=== PATIENT | female | born 1970 | race Caucasian/White ===

== ENCOUNTER 2018-12-23 23:13 | Emergency (ER) | payer OTHER ==
[~2018-12-23] VITALS: Ht 160 cm; Wt 62.6 kg
[2018-12-23 23:15] VITALS: BP 190/100
--- NOTE | 2018-12-23 23:15 | NUR ---
48/F BIB FAMILY, C/O SUDDEN ONSET 9/10 CHEST PAIN, RADIATING TO L ARM WITH TINGLING/NUMBNESS, X15 MINS WHILE LAYING DOWN TRYING TO SLEEP. PT REPORTS HEADACHE. PT DENIES N/V. PT AOX4, AMBULATORY, GCS 15, SKIN NORMAL WARM AND DRY, SPO2 100%, RR 26 EVEN AND MILDLY LABORED. LUNG SOUNDS CLEAR BL. HR EVEN AND REGULAR, NSR ON MONITOR. HX BRAIN TUMOR (2017; DENIES CHEMO/RADIATION), HTN, DM, HIGH CHOLESTEROL RX NOTED IN MED REC; PT REPORTS TAKING 40MG LISINOPRIL PO, MEMANTINE, BUTALBITAL/APAP/CAFFEINE AND 0.4 MG NITROGLYCERIN SPRAY 15 MINS AGO WITHOUT RELIEF.
--- NOTE | 2018-12-23 23:15 | NUR ---
TO BED # 04 AMBULATORY
[2018-12-23] MEDS ORDERED: ASPIRIN 325 MG TAB PO ONE (23:25)
[2018-12-23] MEDS ORDERED: NITROGLYCERIN 0.4 MG TAB SL ONE (23:25)
--- NOTE | 2018-12-23 23:27 | NUR ---
X-RAY AT BEDSIDE.
[2018-12-23 23:45] LABS: BASOPHILS % (AUTO) 0.2 % (0.0-2.0); EOSINOPHILS # (AUTO) 0.2 K/uL (0-0.4); EOSINOPHILS % (AUTO) 1.8 % (0.0-4.0); HEMATOCRIT 37.5 % (36-48); HEMOGLOBIN 12.6 g/dL (12.0-16.0); LYMPHOCYTES # (AUTO) 4.3 K/uL (2.5-16.5); LYMPHOCYTES % (AUTO) 35.7 % (20.5-51.1); MEAN CORPUSCULAR HEMOGLOBIN 29 pg (27-31); MEAN CORPUSCULAR HGB CONC 34 g/dL (33-37); MEAN CORPUSCULAR VOLUME 87.3 fL (80-94); MONOCYTES # (AUTO) 0.8 K/uL (0.8-1.0); MONOCYTES % (AUTO) 6.4 % (1.7-9.3); NEUTROPHILS # (AUTO) 6.7 K/uL (1.8-7.7); NEUTROPHILS % (AUTO) 55.9 % (42.2-75.2); PLATELET COUNT (AUTO) 249 K/uL (140-450); RED BLOOD CELL COUNT(AUTO) 4.29 MIL/uL (4.20-5.40); WHITE BLOOD COUNT (AUTO) 11.9 K/uL (4.8-10.8)
--- NOTE | 2018-12-23 23:48 | NUR ---
Dr. Wu evaluating patient at bedside.
[2018-12-23] MEDS ORDERED: ISOS60TE3 PO (23:49)
[2018-12-23] MEDS ORDERED: HYDR100T79 PO (23:49)
[2018-12-23] MEDS ORDERED: FIO PO (23:49)
[2018-12-23] MEDS ORDERED: LISI40TA4 PO (23:49)
[2018-12-23] MEDS ORDERED: BACTO TP (23:49)
[2018-12-23] MEDS ORDERED: AMLO5TAB PO (23:49)
[2018-12-23] MEDS ORDERED: GEMF600T5 PO (23:49)
[2018-12-23] MEDS ORDERED: NITR0.4S14 SL (23:49)
[2018-12-23] MEDS ORDERED: FLONAS NS (23:49)
[2018-12-23] MEDS ORDERED: CHLO25TA33 PO (23:49)
[2018-12-23] MEDS ORDERED: PAM10 PO (23:49)
[2018-12-23] MEDS ORDERED: CABE0.5T1 PO (23:49)
[2018-12-23] MEDS ORDERED: [UNRECOGNIZED DRUG - CODE] SUBQ (23:49)
[2018-12-23] MEDS ORDERED: CLON0.2T47 TD (23:49)
[2018-12-23] MEDS ORDERED: FERR325E14 PO (23:49)
[2018-12-23] MEDS ORDERED: ROSU40TA PO (23:49)
[2018-12-23] MEDS ORDERED: [UNRECOGNIZED DRUG - CODE] PO (23:49)
[2018-12-23] MEDS ORDERED: FISH10005 PO (23:49)
[2018-12-23] MEDS ORDERED: METF500T PO (23:49)
[2018-12-23] MEDS ORDERED: hydrALAZINE 20 MG/ML VIAL IVP ONE (23:55)
[2018-12-23] MEDS ORDERED: MORPHINE SULFATE 4 MG/ML SYR IVP ONE (23:55)
--- NOTE | 2018-12-24 00:15 | NUR ---
PT LAYING IN BED, RR EVEN AND UNLABORED, PT REPORTS SOME RELIEF IN CP AND HEADACHE AT THIS TIME. VS NOTED. ALL NEEDS MET AT THIS TIME.
[2018-12-24 00:22] LABS: CARBON DIOXIDE 26.6 mmol/L (21-32); CREATININE 0.8 mg/dL (0.6-1.3); TOTAL BILIRUBIN 0.3 mg/dL (0.0-1.0)
[2018-12-24 00:23] LABS: ALBUMIN 4.2 g/dL (3.4-5.0)
[2018-12-24 00:24] LABS: ANION GAP 13.6 (8-16); POTASSIUM 3.2 mmol/L (3.5-5.1)
--- NOTE | 2018-12-24 00:40 | NUR ---
PT LAYING IN BED, RR EVEN AND UNLABORED, PT REPORTS SOME RELIEF IN CP, BUT REMAINS AT 7/10. VS NOTED. ALL NEEDS MET AT THIS TIME.
[2018-12-24] MEDS ORDERED: POTASSIUM CHLORIDE 10 MEQ TABER PO ONE (00:45)
[2018-12-24] MEDS ORDERED: MORPHINE SULFATE 4 MG/ML SYR IVP ONE (01:10)
--- NOTE | 2018-12-24 01:27 | NUR ---
PT LAYING IN BED, DAUGHTER AT BEDSIDE. RR EVEN AND UNLABORED, PT REPORTS SOME RELIEF IN CP, BUT REMAINS AT 7/10. VS NOTED. ADMINISTERED 4MG MORPHINE IVP WITH EDUCATION, PT TOLERATED MEDS WELL. ALL NEEDS MET AT THIS TIME.
--- NOTE | 2018-12-24 02:08 | NUR ---
PT LAYING IN BED, DAUGHTER AT BEDSIDE. RR EVEN AND UNLABORED, PT 6/10 CP RADIATING TO L ARM WITH IMPROVEMENT AFTER MORPHINE IVP. VS NOTED. ALL NEEDS MET AT THIS TIME.
--- NOTE | 2018-12-24 03:00 | NUR ---
PT AND PT'S DAUGHTER MADE AWARE THAT PT WILL BE TRANSFERRED TO [facility], [place], OPERATED BY [facility] PER PT'S INSURANCE, VERBALIZED UNDERSTANDING.
--- NOTE | 2018-12-24 03:15 | NUR ---
PT'S DAUGHTER STATED THAT PT IS REQUESTING TO TRANSFER TO [facility] INSTEAD OF [facility] FOR CONVENIENCE AND DUE TO PT HAVING RECORDS THERE. MADE PT'S DAUGHTER AWARE THAT HOSPITAL IS PT'S INSURANCE'S CHOICE OF CONTRACTED HOSPITALS, AND THAT ANY MEDICAL RECORDS FROM [facility] CAN BE TRANSFERRED TO [facility] WELL. PER [facility] AND ER ADMITTING STAFF, PT CAN CALL PT'S INSURANCE NUMBER ON THEIR CARD. PT'S DAUGHTER VERBALIZED UNDERSTANDING.
--- NOTE | 2018-12-24 03:24 | NUR ---
PT LAYING IN BED, DAUGHTER AT BEDSIDE. RR EVEN AND UNLABORED, PT 6/10 CP RADIATING TO L ARM WITH IMPROVEMENT. VS NOTED. ALL NEEDS MET AT THIS TIME.
[2018-12-24 04:15] VITALS: BP 157/92
--- NOTE | 2018-12-24 04:16 | NUR ---
PT'S DAUGHTER MADE AWARE THAT TESTS MAY NEED TO BE RE-DONE AFTER GOING TO [facility], AND IF DECIDED TO BE ADMITTED, INSURANCE MAY WANT TO TRANSFER AGAIN TO CONTRACTED HOSPITAL. PT'S DAUGHTER AND PT VERBALIZED UNDERSTANDING.
--- NOTE | 2018-12-24 04:16 | NUR ---
PT'S DAUGHTER STATED THAT PT WANTS TO LEAVE AMA DUE TO PT REQUESTING TO TRANSFER TO [facility], INSTEAD OF [facility]. DR IVERSON MADE AWARE.
--- NOTE | 2018-12-24 04:22 | NUR ---
Patient does not wish to proceed with medical care recommended by Dr. Wu. Patient given information related to possible complications, up to and including , which could occur as a result of leaving hospital at this time. Patient and patient's daughter verbalizes understanding of risks involved leaving against medical advice. Patient has signed AMA form.
== END 2018-12-24 04:22 | disposition left against medical advice (07) ==
LOC: MED 23:13
DX: R07.9 Chest pain, unspecified (principal); I10 Essential (primary) hypertension; E87.6 Hypokalemia; E11.9 Type 2 diabetes mellitus without complications; E78.00 Pure hypercholesterolemia, unspecified; Z79.84 Long term (current) use of oral hypoglycemic drugs; Z79.899 Other long term (current) drug therapy; Z88.0 Allergy status to penicillin
CPT/HCPCS: 36415; 71045; 80053; 84484; 85025; 93005; 96374; 96375; 96376; 99284; J0360; J2270; Q0092